=== PATIENT | female | born 1980 | race Caucasian/White ===

== ENCOUNTER 2020-01-03 20:55 | Emergency (ER) | payer BC, MEDICAID, OTHER ==
[~2020-01-03] VITALS: Ht 165.1 cm; Wt 74.8 kg
--- OUTSIDE RECORDS SUMMARY | 2020-01-03 21:05 | XMS REPORT ---
Author Author MontesAllie STOCK RAMON Organization [facility] Address [address] [place] [address] Care Team Providers Care Dry Transfer Worker Name Role Phone RAMON Barraza Unavailable PROBLEMS Type Condition ICD9-CM Code CFS54-AD Code Onset Dates Condition S tatus SNOMED Code Problem Lumbago with sciatica, right side M54.41 Active 744349604265056 Problem Acute right-sided low back pain with right-sided sciatica M54.41 Active 004553242 Problem Screening for diabetes mellitus V77.1 Active 486918803 Problem Other specified symptom associated with female genital org ans 625.8 Active 951555352 Problem Lumbago with sciatica, left side M54.42 Active 250781954 ALLERGIES No Information ENCOUNTERS Encounter Location Date Diagnosis [facility] [address] [place] [address] Mar, Drug screening, pre-employme nt Z02.1 [facility] [address] [facility] [place] [address] Mar, Lumbago with sciatica, right side M54.41 [facility] [address] [place] [address] Mar, Acute right-sided low back p ain with right-sided sciatica M54.41 [facility] WALK IN [facility] [address] [place] [address] October, Drug screening, pre-employme nt Z02.1 [facility] [address] [facility] [place] [address] Aug, [facility] WALK IN [facility] [address] [place] [address] Aug, Lumbago with sciatica, left side M54.42 and Lumbago with sciatica, right side M54.41 [facility] [address] [facility] [place] [address] 14 Sep, 2014 [facility] [id number] [place] [address] Sep, [facility] [id number] [place] [address] Jul, [facility] [id number] [place] [address] Jul, [facility] [id number] [place] [address] Jul, [facility] [id number] [place] [address] Jul, [facility] [id number] [place] [address] Jul, [facility] [id number] [place] [address] Jul, IMMUNIZATIONS No Known Immunizations SOCIAL HISTORY Never Assessed REASON FOR VISIT PLAN OF CARE VITAL SIGNS Height 65 in 2013-07-08 Weight 147 lbs 2013-07-08 Temperature 97.8 degrees Fahrenheit 2013-07-08 Heart Rate 88 bpm 2013-07-08 Respiratory Rate 16 2013-07-08 Blood pressure systolic 138 mmHg 2013-07-08 Blood pressure diastolic 80 mmHg 2013-07-08 MEDICATIONS Unknown Medications RESULTS No Results PROCEDURES Procedure Date Ordered Result Body Site GLYCATED HEMOGLOBIN TEST Jul 08, 2013 CULTURE, BACTERIA, OTHER Jul 08, 2013 VENIPUNCT, ROUTINE* Jul 08, 2013 INSTRUCTIONS MEDICATIONS ADMINISTERED No Known Medications
--- OUTSIDE RECORDS SUMMARY | 2020-01-03 21:05 | XMS REPORT ---
Author Author Allie Norton Doctor Organization [facility] Address Unknown Phone Unavailable Care Team Providers Care Clip On Sunglasses Inspector Name Role Phone Migration, Doctor Unavailable Unavailable PROBLEMS Type Condition ICD9-CM Code YOO02-PT Code Onset Dates Condition S tatus SNOMED Code Problem Lumbago with sciatica, left side M54.42 Active 968750033 Problem Lumbago with sciatica, right side M54.41 Active 128963586694456 Problem Screening for diabetes mellitus V77.1 Active 436613314 Problem Other specified symptom associated with female genital org ans 625.8 Active 741968800 ALLERGIES Substance Reaction Event Type Date Status Ampicillin Unknown Drug Allergy Sep, Active ENCOUNTERS Encounter Location Date Diagnosis [facility] [address] [place] [place] [address] October, Drug screening, pre-employment Z02.1 [facility] [id number] [place] [address] Aug, [facility] [address] [place] [address] Aug, Lumbago with sciatica, left side M54.42 and Lumbago with sciatica, right side M54.41 [facility] [address] [facility] [id number] [address] [place] [address] Sep, [facility] [address] [facility] [address] [facility] [id number] [address] [place] [address] Sep, [facility] [address] [facility] [address] [facility] [id number] [address] [place] [address] Jul, [facility] [address] [facility] [address] [facility] [id number] [address] [place] [address] Jul, [facility] [address] [facility] [address] [facility] [id number] [address] [place] [address] Jul, [facility] [address] [facility] [address] [facility] [id number] [address] [place] [address] Jul, [facility] [address] [facility] [address] [facility] [id number] [address] [place] [address] Jul, [facility] [address] [facility] [address] [facility] [id number] [address] [place] [address] Jul, IMMUNIZATIONS No Known Immunizations SOCIAL HISTORY Never Assessed REASON FOR VISIT EMR-[facility] PLAN OF CARE VITAL SIGNS MEDICATIONS Medication Instructions Dosage Frequency Start Date End Date Duration S tatus Triamcinolone Acetonide 0.1 % 1 Ointment by Topical route 2 times per day PRN apply thin layer to affected area BID Jul, Active Nystatin-Triamcinolone 100,000-0.1 unit/g-% 1 ruddy by Topical route 2 times per day for 14 day(s) PRN rash Jul, A ctive RESULTS No Results PROCEDURES No Known procedures INSTRUCTIONS MEDICATIONS ADMINISTERED No Known Medications
--- OUTSIDE RECORDS SUMMARY | 2020-01-03 21:05 | XMS REPORT ---
Author Author MontseAllie STOCK RAMON Organization [facility] Address [address] [place] [address] Care Team Providers Care Python Architect Name Role Phone RAMON Barraza Unavailable PROBLEMS Type Condition ICD9-CM Code HDB75-RX Code Onset Dates Condition S tatus SNOMED Code Problem Lumbago with sciatica, right side M54.41 Active 452363131300152 Problem Acute right-sided low back pain with right-sided sciatica M54.41 Active 711245776 Problem Screening for diabetes mellitus V77.1 Active 460696200 Problem Other specified symptom associated with female genital org ans 625.8 Active 322572747 Problem Lumbago with sciatica, left side M54.42 Active 673362472 ALLERGIES No Information ENCOUNTERS Encounter Location Date Diagnosis [facility] [address] [place] [address] Mar, Drug screening, pre-employme nt Z02.1 [facility] [address] [facility] [place] [address] Mar, Lumbago with sciatica, right side M54.41 [facility] [address] [place] [address] Mar, Acute right-sided low back p ain with right-sided sciatica M54.41 [facility] WALK IN [facility] [address] [place] [address] October, Drug screening, pre-employme nt Z02.1 [facility] [address] [facility] [place] [address] Aug, [facility] WALK IN [facility] [address] [place] [address] Aug, Lumbago with sciatica, left side M54.42 and Lumbago with sciatica, right side M54.41 [place] [id number] [place] [address] Sep, [facility] [address] [address] Sep, [place] [address] [address] Jul, [place] [address] [address] Jul, [place] [address] [address] Jul, [place] [address] [address] Jul, [place] [address] [address] Jul, [place] [address] [address] Jul, IMMUNIZATIONS No Known Immunizations SOCIAL HISTORY Never Assessed REASON FOR VISIT PLAN OF CARE VITAL SIGNS MEDICATIONS Unknown Medications RESULTS No Results PROCEDURES No Known procedures INSTRUCTIONS MEDICATIONS ADMINISTERED No Known Medications
--- OUTSIDE RECORDS SUMMARY | 2020-01-03 21:05 | XMS REPORT ---
Author Author Allie Norton Doctor Organization [facility] Address Unknown Phone Unavailable Care Team Providers Care Desk Manager Name Role Phone Migration, Doctor Unavailable Unavailable PROBLEMS Type Condition ICD9-CM Code FUP60-OH Code Onset Dates Condition S tatus SNOMED Code Problem Lumbago with sciatica, left side M54.42 Active 430797651 Problem Lumbago with sciatica, right side M54.41 Active 440120011872593 Problem Screening for diabetes mellitus V77.1 Active 511933503 Problem Other specified symptom associated with female genital org ans 625.8 Active 266996857 ALLERGIES No Information ENCOUNTERS Encounter Location Date Diagnosis [facility] [address] [facility] [id number] [address] [place] [address] Aug, [facility] [address] [place] [address] Aug, Lumbago with sciatica, left side M54.42 and Lumbago with sciatica, right side M54.41 [facility] [address] [facility] [id number] [address] [place] [address] Sep, [facility] [address] [facility] [id number] [address] [place] [address] Sep, [facility] [address] [facility] [id number] [address] [place] [address] Jul, [facility] [address] [facility] [id number] [address] [place] [address] Jul, [facility] [address] [facility] [id number] [address] [place] [address] Jul, [facility] [address] [facility] [id number] [address] [place] [address] 08 Jul, 2013 [facility] [address] [facility] [id number] [address] [place] [address] Jul, [facility] [address] [facility] [id number] [address] [place] [address] Jul, IMMUNIZATIONS No Known Immunizations SOCIAL HISTORY Never Assessed REASON FOR VISIT EMR-[facility] PLAN OF CARE VITAL SIGNS MEDICATIONS Unknown Medications RESULTS No Results PROCEDURES No Known procedures INSTRUCTIONS MEDICATIONS ADMINISTERED No Known Medications
--- OUTSIDE RECORDS SUMMARY | 2020-01-03 21:05 | XMS REPORT | Continuity of Care Document ---
Author Organization Unknown Address Unknown Phone Unavailable Allergies Active Description Code Type Severity Reaction Onset Reported/Identified Relationship to Patient Clinical Status Yes ampicillin Drug Allergy N/A N/A 07/08/2013 Medications There is no data. Problems Date Dx Coded Attending Type Code Diagnosis Diagnosed By 07/08/2013 RAMON MCGOWAN APRN 62 5.8 OTHER SPECIFIED SYMPTOMS ASSOCIATED WITH FEMALE GENITAL ORGANS 07/08/2013 RAMON MCGOWAN APRN V7 7.1 DIABETES SCREENING Procedures Code [place] [address] ROUT INE VENIPUNCTURE 07/08/2013 07863 CULT URE UROGENITAL 07/08/2013 90446 A1C (RML) 07/09/2013 Results There is no data. Encounters ACCT No. Visit Date/Time Discharge Status Pt. Type Provider Facility Loc./Unit Complaint [id number] 03/24/2019 16:00:00 03/24/2019 23:59:5 9 [facility] Outpatient YOANDY GARCES [facility] IN [facility] [id number] 07/08/2013 16:05:00 07/08/2013 23:59: 59 [facility] Outpatient RAMON MCGOWAN APRN
--- NOTE | 2020-01-03 21:20 | ED General ---
General Chief Complaint: Trauma-Non Activation Stated Complaint: FELL HIT HEAD Nursing Triage Note: WAS RUNNING, FELL AND HIT THE BACK OF HER HEAD. PT. APPEARS TO HAVE BEEN HYPERVENTILATING SHE C/O PAIN IN HER HANDS AND TINGLING IN HER MOUTH AND FEET. NO LOC Nursing Sepsis Screen: No Definite Risk Source of Information: Patient Exam Limitations: No Limitations History of Present Illness Date Seen by Provider: Jan 03, 2020 Time Seen by Provider: 21:14 Initial Comments pt presents w c/o falling backward at home and hitting the back of her head. Denies loss of consciousness, feeling dazed or confused. Denies and significant neck or back pain. Having some tingling in her toes and spasms of both hands that occurred on her way to the ER. Her drove her to the ER, then needed help to get her to a wheelchair. Allergies and Home Medications Allergies Coded Allergies: Ampicillin (Verified Allergy, Mild, 02/24/06) Patient Home Medication List Home Medication List Reviewed: Yes Review of Systems Review of Systems Constitutional: No dizziness, No fever, No malaise, No weakness EENTM: no symptoms reported Respiratory: No cough, No short of breath Cardiovascular: No chest pain, No edema, No palpitations, No syncope Gastrointestinal: No abdominal pain Musculoskeletal: see HPI; No back pain, No joint pain, No neck pain; other (spasms of both hands. ) Skin: No change in color, No lumps, No rash Psychiatric/Neurological: Headache; Denies Numbness, Denies Paresthesia; Tingling (toes); Denies Tremors, Denies Weakness Past Xhydqqo-Wigbnf-Xhvfta Hx Past Med/Social Hx: Reviewed Nursing Past Med/Soc Hx Patient Social History Recent Foreign Travel: No Contact w/Someone Who Travel: No Recent Infectious Disease Expo: No Recent Hopitalizations: No Physical Abuse: No Sexual Abuse: No Mistreated: No Fear: No Seasonal Allergies Seasonal Allergies: No Past Medical History Surgeries: No Respiratory: No Cardiac: No Neurological: No Genitourinary: No Gastrointestinal: No Musculoskeletal: No Endocrine: No HEENT: No Cancer: No Psychosocial: No Integumentary: No Blood Disorders: No Physical Exam Vital Signs Vital Signs - First Documented 01/03/20 21:04 Temp 36.2 Pulse 103 Resp 16 B/P (MAP) 142/73 (96) Pulse Ox 100 O2 Delivery Room Air Capillary Refill : Less Than 3 Seconds Height, Weight, BMI Height: '" Weight: lbs. oz. kg; 27.00 BMI Method: General Appearance: Anxious (hyperventilating) Eyes: Bilateral Eye Normal Inspection, Bilateral Eye PERRL, Bilateral Eye EOMI HEENT: Normal ENT Inspection Neck: Non Tender, Supple; No Limited Range of Motion, No Tender Lateral, No Tender Midline Respiratory: Chest Non Tender, Lungs Clear Cardiovascular: Regular Rate, Rhythm, No Edema Extremity: Normal Capillary Refill, Normal Inspection, Non Tender, Other (funct ional ROM arms, forearms. b/l hands held tightly in full extension w fingers spread. ) Neurologic/Psychiatric: Alert, Oriented x3, No Motor/Sensory Deficits, underwriting sales representative II- XII Norm as Tested; No Facial Droop, No Motor Weakness, No Sensory Deficit Progress/Results/Core Measures Suspected Sepsis Recent Fever Within 48 Hours: No Infection Criteria Present: None New/Unexplained Altered Menta: No Sepsis Screen: No Definite Risk SIRS Temperature: Pulse: 103 Respiratory Rate: 16 Blood Pressure 142 /73 Mean: 96 Results/Orders My Orders Orders - MCKAYLA LACEY DO Ct Head/Cervical Spine Wo (01/03/20 21:07) Vital Signs/I&O 01/03/20 01/03/20 21:04 21:43 Temp 36.2 36.2 Pulse 103 103 Resp 16 16 B/P (MAP) 142/73 (96) 142/73 (96) Pulse Ox 100 100 O2 Delivery Room Air Room Air Capillary Refill : Less Than 3 Seconds Blood Pressure Mean: 96 Progress Note : Progress Note patient calmed herself down and the extensor spasm of both hands resolved. Diagnostic Imaging Diagonstic Imaging: CT Comments normal head and c-spine Reviewed: Reviewed Night [facility] Study Departure Impression Primary Impression: Closed head injury Qualified Codes: S09.90XA - Unspecified injury of head, initial encounter Additional Impression: Anxiety Disposition: 01 HOME, SELF-CARE Condition: Stable Departure-Patient Inst. Referrals: NO,LOCAL PHYSICIAN (PCP/Family) Primary Care Physician Patient Instructions: Minor Head Injury (DC) Add. Discharge Instructions: See your PCP in 1 week, sooner if problems or concerns All discharge instructions reviewed with patient and/or family. Voiced understanding. MCKAYLA LACEY DO Jan 03, 2020 21:20
[2020-01-03 21:43] VITALS: BP 142/73
--- NOTE | 2020-01-04 05:51 | Diagnostic Imaging Report ---
PROCEDURE: CT head and CT cervical spine without contrast. TECHNIQUE: Multiple contiguous axial images were obtained through the brain and cervical spine without the use of intravenous contrast. Sagittal and coronal reformations through the cervical spine were then performed. Auto Exposure Controls were utilized during the CT exam to meet ALARA standards for radiation dose reduction. INDICATION: Head and neck pain. FINDINGS: The ventricles and sulci are within normal limits. There is no hydrocephalus or cerebral edema. There is no midline shift or mass effect. There is no intracranial mass, hemorrhage or extra-axial fluid collection. The visualized paranasal sinuses and mastoid air cells are clear. No fractures are identified. CERVICAL SPINE: Alignment is normal. There is no fracture or traumatic subluxation. The prevertebral soft tissues are within normal limits. The odontoid is intact and the lateral masses are well aligned. There are no soft tissue abnormalities. IMPRESSION: 1. No acute intracranial process. 2. No focal abnormality in the cervical spine. Dictated by: Dictated on workstation # [id number]
== END 2020-01-03 23:05 | disposition home or self-care (01) ==
LOC: EDUNIT# 20:55 → ER FS 21:00
DX: S09.90XA Unspecified injury of head, initial encounter (principal); F41.9 Anxiety disorder, unspecified; W18.39XA Other fall on same level, initial encounter; Y93.02 Activity, running; Y92.009 Unspecified place in unspecified non-institutional (private) residence as the place of occurrence of the external cause
CPT/HCPCS: 70450; 72125

== ENCOUNTER → 2020-09-07 | Outpatient (CLI) | payer SELFPAY ==
[~2020-09-07] MED LIST: CATHETER FLUSH 10 ML SYR IV PRN; HOLD METFORMIN - RECEIVED CONTRAST 20 ML VIAL IV SCH; IOHEXOL 350 MG/ML 100 ML (OMNIPAQUE 350) VIAL IV ONE; NS 100 ML (IVPB) BAG IV ONE
--- NOTE | 2020-09-07 11:13 | Diagnostic Imaging Report ---
EXAMINATION: CT Abdomen and Pelvis with intravenous contrast. TECHNIQUE: Multiple contiguous axial images were obtained through the abdomen and pelvis after the uneventful administration of intravenous contrast. All CT scans use one or more of the following dose optimizing techniques: automated exposure control, MA and/or KvP adjustment based on a patient size and exam type, or iterative reconstruction. HISTORY: LOW BACK PAIN COMPARISON: None available. FINDINGS: Lung bases: The lung bases are clear. Solid organs: The liver is normal without focal lesion. The gallbladder is normal. There is no biliary ductal dilation. Pancreas is normal. Spleen is normal. Adrenal glands are normal. The kidneys are normal without hydronephrosis. Bowel: The stomach and small bowel are normal without obstruction. There are a few scattered colonic diverticula. There is decompressed appearance with multiple potential wall thickening of the left hemicolon. The appendix is unremarkable without findings of acute appendicitis. Peritoneum: There is no intraperitoneal free fluid or free air. No suspicious lymphadenopathy. Vasculature: Normal without aneurysm. Musculoskeletal: No suspicious osseous lesion or compression fracture. Pelvis: The uterus and adnexa are normal. The urinary bladder is normal. IMPRESSION: 1. Mild wall thickening of the left hemicolon which could be secondary to underdistention but could also be seen with an infectious or inflammatory colitis in the appropriate clinical setting. 2. No other acute abnormality in the abdomen or pelvis. 3. A few scattered colonic diverticula without findings to suggest diverticulitis. Dictated by: Dictated on workstation # [id number]
== END ==
LOC: RAD FS 09:59
PROVIDERS: ATTEND Nurse Practitioner Family
DX: K57.30 Diverticulosis of large intestine without perforation or abscess without bleeding (principal)
CPT/HCPCS: 74177

== ENCOUNTER 2020-09-16 17:25 | Emergency (ER) | payer BC, OTHER ==
--- NOTE | 2020-09-16 18:30 | ED General ---
General Chief Complaint: General Problems/Pain Stated Complaint: SOA,PRESSURE ON HEAD Source of Information: Patient History of Present Illness Date Seen by Provider: Sep 16, 2020 Time Seen by Provider: 17:33 Initial Comments 40-year-old female presenting with multiple complaints. She recently had colitis and was on a steroid and Levaquin. She was feeling bad while taking the steroid and thought she was having side effects from it. She has been having left-sided headache and left-sided chest pain with shortness of breath. She was not running a fever or having any chills. She felt like that headaches were getting worse on the left side. She also had a more severe episode of left- sided chest pain on Sunday but did not seek medical treatment to be evaluated. She reports that this to get better after taking the migraine medication [id number]. She has had no cough or congestion. She denies any nausea or vomiting. She has felt like she was having some tingling in her left hand and arm. She feels like she is getting spasms and tightness in her muscles in the left side of her chest. When the chest pain got better on Sunday it felt like a muscle in her chest wall "released" and that helped with her chest pain. She is very anxious and worried about what is going on. She states that she does not feel right especially on the left side of her head chest and arm. She does report having a prior concussion with head injury in the fall and is not sure if that is related to any of her headache and symptoms of not feeling right on the left side. She denies any recurrent or recent fall or injury. Allergies and Home Medications Allergies Coded Allergies: ampicillin (Verified Allergy, Mild, 02/24/06) Patient Home Medication List Home Medication List Reviewed: Yes Review of Systems Review of Systems Constitutional: No chills, No diaphoresis, No fever; malaise EENTM: no symptoms reported Respiratory: see HPI Cardiovascular: see HPI Gastrointestinal: see HPI Genitourinary: no symptoms reported LMP: Sep 09, 2020 Musculoskeletal: muscle pain (In her chest and left shoulder) Skin: No change in color, No rash Psychiatric/Neurological: Anxiety, Headache (Intermittent left sided headaches), Tingling (Left arm) Hematologic/Lymphatic: Denies Blood Clots, Denies Easy Bleeding, Denies Easy Bruising Immunological/Allergic: no symptoms reported Past Mkmwsne-Cyjaqi-Ghexvx Hx Past Med/Social Hx: Reviewed Nursing Past Med/Soc Hx Patient Social History Recent Hopitalizations: No Seasonal Allergies Seasonal Allergies: No Past Medical History Surgeries: No Respiratory: No Cardiac: No Neurological: No Genitourinary: No Gastrointestinal: No Musculoskeletal: No Endocrine: No HEENT: No Cancer: No Psychosocial: No Integumentary: No Blood Disorders: No Physical Exam Vital Signs Vital Signs - First Documented 09/16/20 18:10 Temp 36.8 Pulse 112 Resp 18 B/P (MAP) 124/95 (105) Pulse Ox 100 Capillary Refill : Height, Weight, BMI Height: '" Weight: lbs. oz. kg; 27.00 BMI Method: General Appearance: No Apparent Distress, Anxious HEENT: PERRL/EOMI, Pharynx Normal Neck: Full Range of Motion, Normal Inspection, Non Tender, Supple Respiratory: Chest Non Tender, Lungs Clear, Normal Breath Sounds, No Accessory Muscle Use, No Respiratory Distress Cardiovascular: Regular Rate, Rhythm, Normal Peripheral Pulses Gastrointestinal: Normal Bowel Sounds, No Pulsatile Mass, Soft; No Distended, No Guarding, No Rebound; Tenderness (Right lower quadrant and epigastric area with palpation) Rectal: Deferred Back: Normal Inspection, No CVA Tenderness, No Vertebral Tenderness Extremity: Normal Capillary Refill, No Pedal Edema Neurologic/Psychiatric: Alert, Oriented x3, 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 Norm as Tested, Other (Anxious and intermittently tearful) Skin: Normal Color, Warm/Dry; No Rash Progress/Results/Core Measures Suspected Sepsis SIRS Temperature: Pulse: Respiratory Rate: Laboratory Tests 09/16/20 19:10: White Blood Count 9.5 Blood Pressure / Mean: Laboratory Tests 09/16/20 19:10: Creatinine 0.74, INR Comment 1.0, Platelet Count 335, Total Bilirubin 0.8 Results/Orders Lab Results Laboratory Tests Test 09/16/20 19:10 09/16/20 19:41 Range/Units White Blood Count 9.5 4.3-11.0 10^3/uL Red Blood Count 5.02 4.35-5.85 10^6/uL Hemoglobin 15.1 11.5-16.0 G/DL Hematocrit 44 35-52 % Mean Corpuscular Volume 87 80-99 FL Mean Corpuscular Hemoglobin 30 25-34 PG Mean Corpuscular Hemoglobin Concent 35 32-36 G/DL Red Cell Distribution Width 12.0 10.0-14.5 % Platelet Count 335 130-400 10^3/uL Mean Platelet Volume 8.8 7.4-10.4 FL Immature Granulocyte % (Auto) 1 % Neutrophils (%) (Auto) 71 42-75 % Lymphocytes (%) (Auto) 20 12-44 % Monocytes (%) (Auto) 6 0-12 % Eosinophils (%) (Auto) 1 0-10 % Basophils (%) (Auto) 1 0-10 % Neutrophils # (Auto) 6.8 1.8-7.8 X 10^3 Lymphocytes # (Auto) 1.9 1.0-4.0 X 10^3 Monocytes # (Auto) 0.6 0.0-1.0 X 10^3 Eosinophils # (Auto) 0.1 0.0-0.3 10^3/uL Basophils # (Auto) 0.1 0.0-0.1 10^3/uL Immature Granulocyte # (Auto) 0.1 0.0-0.1 10^3/uL Prothrombin Time 13.6 12.2-14.7 SEC INR Comment 1.0 0.8-1.4 Activated Partial Thromboplast Time 29 24-35 SEC Sodium Level 136 135-145 MMOL/L Potassium Level 3.6 3.6-5.0 MMOL/L Chloride Level 98 98-107 MMOL/L Carbon Dioxide Level 26 21-32 MMOL/L Anion Gap 12 5-14 MMOL/L Blood Urea Nitrogen 9 7-18 MG/DL Creatinine 0.74 0.60-1.30 MG/DL Estimat Glomerular Filtration Rate > 60 BUN/Creatinine Ratio 12 Glucose Level 95 70-105 MG/DL Calcium Level 9.9 8.5-10.1 MG/DL Corrected Calcium 8.5-10.1 MG/DL Magnesium Level 2.1 1.6-2.4 MG/DL Total Bilirubin 0.8 0.1-1.0 MG/DL Aspartate Amino Transf (AST/SGOT) 18 5-34 U/L Alanine Aminotransferase (ALT/SGPT) 12 0-55 U/L Alkaline Phosphatase 65 40-136 U/L Troponin I < 0.30 <0.30 NG/ML Pro-B-Type Natriuretic Peptide 29.3 <75.0 PG/ML Total Protein 7.9 6.4-8.2 GM/DL Albumin 4.9 H 3.2-4.5 GM/DL Lipase 20 8-78 U/L Urine Color YELLOW Urine Clarity CLEAR Urine pH 7.0 5-9 Urine Specific [place] 1.010 L 1.016-1.022 Urine Protein NEGATIVE NEGATIVE Urine Glucose (UA) NEGATIVE NEGATIVE Urine Ketones 2+ H NEGATIVE Urine Nitrite NEGATIVE NEGATIVE Urine Bilirubin NEGATIVE NEGATIVE Urine Urobilinogen 0.2 < = 1.0 MG/DL Urine Leukocyte Esterase NEGATIVE NEGATIVE Urine RBC (Auto) NEGATIVE NEGATIVE Urine RBC NONE /HPF Urine WBC 2-5 /HPF Urine Squamous Epithelial Cells 10-25 H /HPF Urine Crystals NONE /LPF Urine Bacteria TRACE /HPF Urine Casts NONE /LPF Urine Mucus NEGATIVE /LPF Urine Culture Indicated NO My Orders Orders - PAMELA MARCH MD Comprehensive Metabolic Panel (09/16/20 18:48) Lipase (09/16/20 18:48) Ua Culture If Indicated (09/16/20 18:48) Ed Iv/Invasive Line Start (09/16/20 18:48) Cbc With Automated Diff (09/16/20 18:48) Ct Head/Cervical Spine Wo (09/16/20 18:48) Ekg Tracing (09/16/20 18:48) Troponin I Fs (09/16/20 18:48) Probnp Fs (09/16/20 18:48) Magnesium (09/16/20 18:48) Protime With Inr (09/16/20 18:48) Partial Thromboplastin Time (09/16/20 18:48) Ns Iv 1000 Ml (Sodium Chloride 0.9%) (09/16/20 18:48) Ketorolac Injection (Toradol Injection) (09/16/20 18:48) Ct Chest/Abdomen/Pelvis W (09/16/20 18:48) Iohexol Injection (Omnipaque 350 Mg/Ml 1 (09/16/20 19:00) Received Contrast (Hold Metformin- Contr (09/16/20 19:00) Sodium Chloride Flush (Catheter Flush Sy (09/16/20 19:00) Ns (Ivpb) (Sodium Chloride 0.9% Ivpb Bag (09/16/20 19:00) Medications Given in ED Current Medications Medications Dose Ordered Sig/Leif Route Start Time Stop Time Status Last Admin Dose Admin Iohexol 100 ml ONCE ONCE IV 09/16/20 19:00 09/16/20 19:01 DC 09/16/20 19:35 100 ML Sodium Chloride 10 ml NEEDED PRN IV 09/16/20 19:00 09/16/20 19:35 10 ML Sodium Chloride 100 ml ONCE ONCE IV 09/16/20 19:00 09/16/20 19:01 DC 09/16/20 19:35 80 ML Vital Signs/I&O 09/16/20 18:10 Temp 36.8 Pulse 112 Resp 18 B/P (MAP) 124/95 (105) Pulse Ox 100 Capillary Refill : Progress Note #1: Progress Note Obtain basic labs as well as electrocardiogram since she complained of chest pain off and on for few days. Obtain cardiac enzymes due to her intermittent chest pain. Ordered CT of her head and cervical spine since she complains of left-sided headache and intermittent tingling in her left arm and chest. Obtain CT scan of her chest abdomen and pelvis with her complaining of shortness of breath, chest pain, right-sided abdominal pain and epigastric pain. Try IV fluids for hydration, Toradol for pain since she was intermittently wincing in pain complaining of muscle pain in her chest as well as tenderness with palpation of her right lower quadrant. Differential diagnosis would include appendicitis, acute ID, migraine headache, stroke, subdural hematoma, brain mass or tumor, sinusitis, colitis, diverticulitis, gastritis with esophagitis, pulmonary embolism, pneumonia, pleurisy. Progress Note #2: Progress Note Labs all appear stable without acute significant normality on CBC chemistry or coags. Awaiting CT scan results. Progress Note #3: Time: 20:[address] of the head and cervical spine does not show any acute process. There is no acute intracranial process such as hemorrhage, mass or stroke. Progress Note #4: Time: 20:[address] of the chest abdomen pelvis did not demonstrate any acute significant abnormalities either. She has no evidence of PE or pneumonia on her chest. Her abdomen and pelvis did not demonstrate any acute appendicitis or clinically significant enlarged lymph nodes. We will check back with the patient and her s. try to reassure them that no acute significant findings for seen on labs and testing available to me here in the ED. We have been able to rule out signs of stroke, brain mass or tumor, cervical spine mass or fracture, pulmonary embolism, pneumonia, recurrent colitis or diverticulitis, appendicitis, myocardial infarction. Encourage patient to follow-up with clinic for continued concerns. Some of this may be still related to the recent steroids that she took. Also after having head injury in the fall she could be having some migraines or headaches that are now developing after having previous traumatic brain injury. Encourage hydration and rest. May continue to use the [id number]-wqpgykz migraine medications such as Excedrin Migraine similar medication. Advised to call the clinic to arrange follow-up and further testing as they see fit. states she last took steroid on Sunday and has had insomnia while on steroids. Tried Melatonin without effective sleep. She could try Benadryl 25-50 mg at bedtime to help her sleep and melatonin with that if needed. I advised her the steroid effect should wear out of her system over the next few days but it can take up to a week for steroid side effects to completely clear up. ECG Initial ECG Impression Date: Sep 16, 2020 Initial ECG Impression Time: 19:55 Initial ECG Rate: 75 Initial ECG Rhythm: Normal Sinus Initial ECG Comparisson: No Previous ECG Available Comment Normal sinus rhythm with a heart rate of 75 bpm. GA interval 130 ms. QT interval 402 ms with a QTc interval [address] elevation. There is no prior tracing available for comparison. Diagnostic Imaging Diagonstic Imaging: CT Plain Films/CT/US/NM/MRI: c-spine, head Comments NAME: MARCIAL [facility]INOSA [facility] REC#: [id number] PT STATUS: REG ER : 1980 PHYSICIAN: PAMELA MARCH MD ADMIT DATE: 09/16/20/ER FS Draft Date of Exam:09/16/20 CT HEAD/CERVICAL SPINE WO PROCEDURE: CT head and CT cervical spine without contrast. TECHNIQUE: Multiple contiguous axial images were obtained through the brain and cervical spine without the use of intravenous contrast. Sagittal and coronal reformations through the cervical spine were then performed. Auto Exposure Controls were utilized during the CT exam to meet ALARA standards for radiation dose reduction. DATE: September 16, 2020. COMPARISON: CT head and cervical spine January 03, 2020. INDICATION: 40-year-old female, left-sided headache and chest pain. Neck pain. FINDINGS: The ventricles and cerebral spinal fluid spaces are of normal size and configuration for the patient's age. There is no mass effect or midline shift. There is no acute intracranial hemorrhage. There is no abnormal extra-axial fluid collection. The visualized portions of the paranasal sinuses, mastoid air cells and middle ears are well aerated. There is no identified facet joint subluxation or dislocation. There is no asymmetric widening of the cervical disc spaces. No prominent prevertebral soft tissue swelling. CT is limited for assessment of disc pathology as well as additional nonbony causes of pathology in the spinal canal. There is no identified acute fracture of the cervical spine. IMPRESSION: 1. No identified acute intracranial abnormality. 2. No identified acute abnormality of the cervical spine. Dictated on workstation # [id number] Dict: 09/16/201956 Trans: 09/16/202002 PJE [id number] Interpreted by: MOSES NATH MD Electronically signed by: Layengonsabbe Imaging: CT Plain Films/CT/US/NM/MRI: chest, abdomen, pelvis Comments NAME: MARCIAL ESPINOSA [facility] REC#: [id number] PT STATUS: REG ER : 1980 PHYSICIAN: PAMELA MARCH MD ADMIT DATE: 09/16/20/ER FS Draft Date of Exam:09/16/20 CT CHEST/ABDOMEN/PELVIS W PROCEDURE: CT chest, abdomen, and pelvis with contrast. TECHNIQUE: Multiple contiguous axial images were obtained through the chest, abdomen, and pelvis after the administration of intravenous contrast. Auto Exposure Controls were utilized during the CT exam to meet ALARA standards for radiation dose reduction. DATE: September 16, 2020. COMPARISON: CT abdomen and pelvis September 07, 2020. INDICATION: 40-year-old female, right lower quadrant abdominal pain. Recent history of colitis. FINDINGS: There is a normal variant azygous lobe. There is no identified pulmonary nodule. There is no lung mass. There is no focal airspace consolidation. There is no pneumothorax. There is no pleural effusion. The central airways are patent. There is no identified central or segmental pulmonary embolus. The heart is not enlarged. There is no pericardial effusion. There is no abnormally enlarged mediastinal, hilar or axillary lymph node meeting CT size criteria for adenopathy. The liver is unremarkable in size and contour. There is no identified liver lesion. The main, right and left portal veins are patent. The gallbladder is unremarkable. There is no biliary ductal dilation. The main pancreatic duct is not abnormally dilated. Unremarkable appearance of the pancreatic parenchyma. The spleen is normal in size. The adrenal glands are unremarkable. Unremarkable appearance of the renal parenchyma. The urinary collecting systems are not distended. There is no identified renal or ureteral stone. Urinary bladder is unremarkable. There is a probable left ovarian follicle on axial image 62 measuring 1.7 cm in size. The intestinal tract is not distended. The appendix is seen on axial image 60 and adjacent sequential images. There is no evidence of acute appendicitis. There is no free intraperineal air. There is no drainable fluid collection. There is no free pelvic fluid. There is no identified abnormally enlarged lymph node in the abdomen or pelvis meeting CT size criteria for adenopathy. There is no identified acute bony abnormality. IMPRESSION: No identified acute abnormality at the level of the chest, abdomen or pelvis. Dictated on workstation # [id number] Dict: 09/16/202010 Trans: 09/16/202019 [facility] [id number] Interpreted by: MOSES NATH MD Electronically signed by: Departure Impression Primary Impression: Recurrent headache Additional Impressions: Non-cardiac chest pain Steroid side effects Qualified Codes: T38.0X5A - Adverse effect of glucocorticoids and synthetic analogues, initial encounter Disposition: 01 HOME, SELF-CARE Condition: Stable Departure-Patient Inst. Decision time for Depature: 20:37 Referrals: ELLEN GONZALEZ APRN (PCP/Family) Primary Care Physician Patient Instructions: Headache, Adult ED, Home Headache Remedies, Chest Pain That Is Not Caused by the Heart (DC) Add. Discharge Instructions: Stay well hydrated and get plenty of rest Follow up with clinic for continued concerns and further testing/evaluation as they deem necessary. You may take the over the counter Migraine headache medicine if you have recurrent headaches. All discharge instructions reviewed with patient and/or family. Voiced understanding. Work/School Note: Work Release Form Date Seen in the Emergency Department: Sep 16, 2020 Return to Work: Sep 20, 2020 Restrictions: No Restrictions PAMELA MARCH MD Sep 16, 2020 18:30
[2020-09-16] MEDS ORDERED: KETOROLAC 30 MG/ML VIAL IVP STA (18:48)
[2020-09-16] MEDS ORDERED: NS IV 1000 ML 1,000 ML IV STA (18:48)
[2020-09-16] MEDS ORDERED: IOHEXOL 350 MG/ML 100 ML (OMNIPAQUE 350) VIAL IV ONE (19:00)
[2020-09-16] MEDS ORDERED: NS 100 ML (IVPB) BAG IV ONE (19:00)
[2020-09-16] MEDS ORDERED: CATHETER FLUSH 10 ML SYR IV PRN (19:00)
[2020-09-16] MEDS ORDERED: HOLD METFORMIN - RECEIVED CONTRAST 20 ML VIAL IV SCH (19:00)
[2020-09-16 19:43] LABS: BASOPHILS # (AUTO) 0.1 10^3/uL (0.0-0.1); BASOPHILS % (AUTO) 1 % (0-10); EOSINOPHILS # (AUTO) 0.1 10^3/uL (0.0-0.3); EOSINOPHILS % (AUTO) 1 % (0-10); HEMATOCRIT 44 % (35-52); HEMOGLOBIN 15.1 G/DL (11.5-16.0); LYMPHOCYTES # (AUTO) 1.9 X 10^3 (1.0-4.0); LYMPHOCYTES % (AUTO) 20 % (12-44); MEAN CORPUSCULAR HEMOGLOBIN 30 PG (25-34); MEAN CORPUSCULAR HGB CONC 35 G/DL (32-36); MEAN CORPUSCULAR VOLUME 87 FL (80-99); MEAN PLATELET VOLUME 8.8 FL (7.4-10.4); MONOCYTES # (AUTO) 0.6 X 10^3 (0.0-1.0); MONOCYTES % (AUTO) 6 % (0-12); NEUTROPHILS # (AUTO) 6.8 X 10^3 (1.8-7.8); NEUTROPHILS % (AUTO) 71 % (42-75); PLATELET COUNT 335 10^3/uL (130-400); WHITE BLOOD COUNT 9.5 10^3/uL (4.3-11.0)
[2020-09-16 19:44] LABS: PROTHROMBIN TIME PATIENT 13.6 SEC (12.2-14.7)
[2020-09-16 19:50] LABS: ALANINE AMINOTRANSFERASE 12 U/L (0-55); ALBUMIN 4.9 GM/DL (3.2-4.5); ALKALINE PHOSPHATASE 65 U/L (40-136); BILIRUBIN,TOTAL 0.8 MG/DL (0.1-1.0); BUN/CREATININE RATIO 12; CALCIUM 9.9 MG/DL (8.5-10.1); CARBON DIOXIDE 26 MMOL/L (21-32); CHLORIDE 98 MMOL/L (98-107); CREATININE SERUM 0.74 MG/DL (0.60-1.30); GFR ESTIMATED > 60; GLUCOSE 95 MG/DL (70-105); LIPASE 20 U/L (8-78); MAGNESIUM 2.1 MG/DL (1.6-2.4); POTASSIUM 3.6 MMOL/L (3.6-5.0); SODIUM 136 MMOL/L (135-145); TOTAL PROTEIN 7.9 GM/DL (6.4-8.2)
[2020-09-16 20:00] LABS: BILIRUBIN,URINE NEGATIVE (NEGATIVE); CLARITY,URINE CLEAR; COLOR,URINE YELLOW; GLUCOSE, URINE (UA) NEGATIVE (NEGATIVE); KETONES,URINE 2+ (NEGATIVE); LEUKOCYTE ESTERASE ,URINE NEGATIVE (NEGATIVE); NITRITE,URINE NEGATIVE (NEGATIVE); PROTEIN,URINE NEGATIVE (NEGATIVE)
[2020-09-16 20:04] LABS: BACTERIA,URINE TRACE /HPF
--- NOTE | 2020-09-16 20:04 | Diagnostic Imaging Report ---
PROCEDURE: CT head and CT cervical spine without contrast. TECHNIQUE: Multiple contiguous axial images were obtained through the brain and cervical spine without the use of intravenous contrast. Sagittal and coronal reformations through the cervical spine were then performed. Auto Exposure Controls were utilized during the CT exam to meet ALARA standards for radiation dose reduction. DATE: September 16, 2020. COMPARISON: CT head and cervical spine January 03, 2020. INDICATION: 40-year-old female, left-sided headache and chest pain. Neck pain. FINDINGS: The ventricles and cerebral spinal fluid spaces are of normal size and configuration for the patient's age. There is no mass effect or midline shift. There is no acute intracranial hemorrhage. There is no abnormal extra-axial fluid collection. The visualized portions of the paranasal sinuses, mastoid air cells and middle ears are well aerated. There is no identified facet joint subluxation or dislocation. There is no asymmetric widening of the cervical disc spaces. No prominent prevertebral soft tissue swelling. CT is limited for assessment of disc pathology as well as additional nonbony causes of pathology in the spinal canal. There is no identified acute fracture of the cervical spine. IMPRESSION: 1. No identified acute intracranial abnormality. 2. No identified acute abnormality of the cervical spine. Dictated by: Dictated on workstation # [id number]
--- NOTE | 2020-09-16 20:21 | Diagnostic Imaging Report ---
PROCEDURE: CT chest, abdomen, and pelvis with contrast. TECHNIQUE: Multiple contiguous axial images were obtained through the chest, abdomen, and pelvis after the administration of intravenous contrast. Auto Exposure Controls were utilized during the CT exam to meet ALARA standards for radiation dose reduction. DATE: September 16, 2020. COMPARISON: CT abdomen and pelvis September 07, 2020. INDICATION: 40-year-old female, right lower quadrant abdominal pain. Recent history of colitis. FINDINGS: There is a normal variant azygous lobe. There is no identified pulmonary nodule. There is no lung mass. There is no focal airspace consolidation. There is no pneumothorax. There is no pleural effusion. The central airways are patent. There is no identified central or segmental pulmonary embolus. The heart is not enlarged. There is no pericardial effusion. There is no abnormally enlarged mediastinal, hilar or axillary lymph node meeting CT size criteria for adenopathy. The liver is unremarkable in size and contour. There is no identified liver lesion. The main, right and left portal veins are patent. The gallbladder is unremarkable. There is no biliary ductal dilation. The main pancreatic duct is not abnormally dilated. Unremarkable appearance of the pancreatic parenchyma. The spleen is normal in size. The adrenal glands are unremarkable. Unremarkable appearance of the renal parenchyma. The urinary collecting systems are not distended. There is no identified renal or ureteral stone. Urinary bladder is unremarkable. There is a probable left ovarian follicle on axial image 62 measuring 1.7 cm in size. The intestinal tract is not distended. The appendix is seen on axial image 60 and adjacent sequential images. There is no evidence of acute appendicitis. There is no free intraperineal air. There is no drainable fluid collection. There is no free pelvic fluid. There is no identified abnormally enlarged lymph node in the abdomen or pelvis meeting CT size criteria for adenopathy. There is no identified acute bony abnormality. IMPRESSION: No identified acute abnormality at the level of the chest, abdomen or pelvis. Dictated by: Dictated on workstation # [id number]
[2020-09-16 21:17] VITALS: BP 131/69
== END 2020-09-16 21:17 | disposition home or self-care (01) ==
LOC: EDUNIT# 17:25 → ER FS 17:27
DX: R51.9 Headache, unspecified (principal); R07.89 Other chest pain; T38.0X5A Adverse effect of glucocorticoids and synthetic analogues, initial encounter; F41.9 Anxiety disorder, unspecified; Z88.1 Allergy status to other antibiotic agents
CPT/HCPCS: 36415; 70450; 71260; 72125; 74177; 80053; 81000; 83690; 83735; 83880; 84484; 85025; 85610; 85730; 93005